=== PATIENT | female | born 1955 ===

== ENCOUNTER 2017-09-14 13:50 | Emergency (ER) | payer MEDICAID ==
[2017-09-14 13:51] VITALS: BMI 21.4
--- NOTE | 2017-09-14 15:31 | ED PDOC ---
Arrival/HPI - General Chief Complaint: Dizziness/Lightheaded Time Seen by Provider: 09/14/17 14:35 Historian: Patient, Family - History of Present Illness Narrative History of Present Illness (Text): 09/14/17 15:26 Pt is a 62 year old female with a past medical history of HTN and HLD, who was brought in by family for a blood pressure reading this morning of 120/ 63. Upon taking the reading at home, the patient immediately felt lightheaded and dizzy and worried that her pressure was too low when she saw the diastolic reading at 63. Pt denies chest pain shortness of breath, nausea, vomiting, diarrhea, change in stool, urine, medications, diet, trauma, recent illness, or any other complaints. PMD is is Dr. Obed Garrison Time/Duration: Prior to Arrival Symptom Onset: Sudden Symptom Course: Resolved Quality: Unable to Describe Severity Level: 1 Activities at Onset: Rest Context: Home Past Medical History - Provider Review Nursing Documentation Reviewed: Yes - Travel History Have you recently traveled outside [place] w/in the past 3 mons?: No - Infectious Disease Hx of Infectious Diseases: None - Reproductive Menopause: Yes - Cardiac Hx Hypertension: Yes - Psychiatric Hx Depression: No Hx Emotional Abuse: No Hx Physical Abuse: No Hx Substance Use: No - Past Surgical History Past Surgical History: No Previous - Suicidal Assessment Feels Threatened In Home Enviroment: No Family/Social History - Physician Review Nursing Documentation Reviewed: Yes Family/Social History: Unknown Family HX Smoking Status: Never Smoked Hx Alcohol Use: No Hx Substance Use: No Allergies/Home Meds Allergies/Adverse Reactions: Allergies No Known Allergies Allergy (Verified 09/14/17 14:48) Home Medications: Home Meds Medication Instructions Recorded Confirmed Atenolol 100 mg PO DAILY 07/05/13 09/14/17 Losartan Potassium [Losartan 25 mg PO DAILY 05/14/15 09/14/17 Potassium] Simvastatin [Simvastatin] 20 mg PO DAILY 05/14/15 09/14/17 hydroCHLOROthiazide [Microzide] 12.5 mg PO DAILY 05/14/15 09/14/17 Review of Systems - Physician Review All systems were reviewed & negative as marked: Yes - Review of Systems Constitutional: Normal Eyes: Normal ENT: Normal Respiratory: Normal Cardiovascular: Normal Gastrointestinal: Normal Genitourinary Female: Normal Musculoskeletal: Normal Skin: Normal Neurological: Dizziness (briefly this morning) Endocrine: Normal Hemo/Lymphatic: Normal Psychiatric: Normal Physical Exam Vital Signs Reviewed: Yes Vital Signs Temp Pulse Resp BP Pulse Ox 09/14/17 16:18 98.3 F 80 18 155/76 H 99 09/14/17 15:31 98.2 F 82 18 134/79 100 09/14/17 14:43 98.7 F 94 H 20 148/81 99 Temperature: Afebrile Blood Pressure: Normal Pulse: Regular Respiratory Rate: Normal Appearance: Positive for: Well-Appearing, Non-Toxic, Comfortable Pain Distress: None Mental Status: Positive for: Alert and Oriented X 3 - Systems Exam Head: Present: Atraumatic, Normocephalic Pupils: Present: PERRL Extroacular Muscles: Present: EOMI Conjunctiva: Present: Normal Mouth: Present: Moist Mucous Membranes Neck: Present: Normal Range of Motion Respiratory/Chest: Present: Clear to Auscultation, Good Air Exchange. No: Respiratory Distress, Accessory Muscle Use Cardiovascular: Present: Regular Rate and Rhythm, Normal S1, S2. No: Murmurs Abdomen: Present: Normal Bowel Sounds. No: Tenderness, Distention, Peritoneal Signs Back: Present: Normal Inspection Upper Extremity: Present: Normal Inspection. No: Cyanosis, Edema Lower Extremity: Present: Normal Inspection. No: Edema Neurological: Present: GCS=15, CN II-XII Intact, Speech Normal Skin: Present: Warm, Dry, Normal Color. No: Rashes Psychiatric: Present: Alert, Oriented x 3, Normal Insight, Normal Concentration Medical Decision Making ED Course and Treatment: 09/14/17 15:31 Impression Pt is a 62 year old female with a past medical history of HTN and HLD, who was brought in by family for a blood pressure reading this morning of . Plan Assess vital signs; re-take BP ECG Dispo Progress Note Pt lying comfortably with daughter and grandson at bedside Blood Pressure stable x 2 and advised pt to follow up with PMD if any other concerns VSS and ambulated well out of the ER - EKG Interpretation Interpreted by ED Physician: Yes (NSR, Rate of 73) Disposition/Present on Arrival - Present on Arrival Any Indicators Present on Arrival: No History of DVT/PE: No History of Uncontrolled Diabetes: No Urinary Catheter: No History of Decub. Ulcer: No History Surgical Site Infection Following: None - Disposition Have Diagnosis and Disposition been Completed?: Yes Diagnosis: Blood pressure check, Dizziness Disposition: HOME/ ROUTINE Disposition Time: 16:14 Patient Plan: Discharge Condition: GOOD Discharge Instructions (ExitCare): Controlling Your Blood Pressure Through Lifestyle Additional Instructions: Please continue to monitor your blood pressure at home and continue taking the mediations your doctor has prescribed. If you experience severe dizziness, fainting or any other alarming symptoms, return to the emergency department. Otherwise follow up with your Primary doctor in the next 2 days. Be Well Referrals: Obed Garrison Jr., MD [Primary Care Provider] - Follow up with primary Forms: [employer] (Kyr[place]z)
[2017-09-14 15:32] VITALS: RESP 18
[2017-09-14 16:19] VITALS: BP 155/76; PULSE 80; TEMP 98.3; O2SAT 99
--- NOTE | 2017-09-14 21:10 | CARD ---
APPROVED REPORT EKG Measurement Heart [id number] <Conclusion> Normal sinus rhythm Normal ECG
== END 2017-09-14 16:22 | disposition home or self-care (01) ==
LOC: ED 13:50
DX: R42 Dizziness and giddiness (principal); I10 Essential (primary) hypertension; E78.5 Hyperlipidemia, unspecified